=== PATIENT | female | born 1970 | race Hispanic/Latino ===

== ENCOUNTER 2017-03-14 23:37 | Emergency (ER) | payer OTHER ==
--- NOTE | 2017-03-15 01:03 | Cat Scan Report ---
FINAL REPORT EXAM: CT HEAD/BRAIN WO CON HISTORY: fall TECHNIQUE: Noncontrast serial axial images from skull base to vertex PRIORS: None. FINDINGS: There is no mass effect or midline shift. There are no abnormal intra or extra-axial fluid collections. Cortical sulci and lateral ventricles are within normal limits for size and configuration. Basilar cisterns are patent. No acute intracranial hemorrhage is identified. Visualized paranasal sinuses and mastoid air cells are well aerated. No acute osseous abnormality is identified. IMPRESSION: 1. No acute intracranial hemorrhage is identified.
--- NOTE | 2017-03-15 01:05 | Cat Scan Report ---
FINAL REPORT EXAM: CT CERVICAL SPINE WO CON HISTORY: fall TECHNIQUE: Noncontrast serial axial images through the cervical spine with coronal and sagittal reconstruction. PRIORS: None. FINDINGS: No gross abnormality is seen in the visualized portion of the brain. Mastoid air cells are well aerated. Prevertebral soft tissues appear within normal limits. Paraseptal emphysematous changes seen in the lung apices. No acute fracture or anterolisthesis is identified. Degenerative changes are noted at multiple levels. There is a subcentimeter lucent focus in the dens which may represent intraosseous cyst. IMPRESSION: 1. No acute fracture or anterolisthesis is identified. 2. Multilevel degenerative change is noted.
[2017-03-15] MEDS ORDERED: TYLENOL PO ONE (01:07)
--- NOTE | 2017-03-15 01:12 | Emergency Department Report ---
ED Syncope HPI - General Chief Complaint: Syncope Stated Complaint: SYNCOPAL EPISODE Time Seen by Provider: 03/15/17 00:39 Source: patient, family, EMS Exam Limitations: no limitations - History of Present Illness Initial Comments: There was a 6-year-old female brought by EMS medical. All syncope one episode lasted 1 minutes. Patient stated that she was outside in hot for a good. Time today. Patient stated that she was just asked to double up her blood pressure medicine. Patient stated that she is back to normal denied any jerking movements during this episode, never had a similar condition before. Timing/Prior Episodes: no prior history Context: standing Loss of Consciousness: unsure Current Symptoms: back to normal - Related Data Allergies/Adverse Reactions: Allergies codeine Allergy (Verified 03/14/17 23:52) Unknown Home Medications: Ambulatory Orders Cyclobenzaprine [Flexeril 10mg] 10 mg PO TID PRN #20 tablet 03/25/14 HYDROcodone/APAP 5-325 [[place] 5/325] 1 each PO Q6HR PRN #14 tablet 03/25/14 Ibuprofen [Motrin] 600 mg PO Q8H PRN #20 tablet 03/25/14 Lisinopril [Zestril TAB] 10 mg PO QDAY #30 tablet 03/15/17 ED Review of Systems ROS: Stated complaint: SYNCOPAL EPISODE Other details as noted in HPI Comment: All other systems reviewed and negative Constitutional: denies: chills, fever ENT: denies: throat pain Respiratory: denies: cough, shortness of breath Cardiovascular: denies: chest pain Gastrointestinal: denies: abdominal pain, nausea, vomiting Musculoskeletal: denies: back pain Neurological: headache. denies: weakness, numbness ED Past Medical Hx - Past Medical History Previous Medical History?: Yes Hx Hypertension: Yes Hx Psychiatric Treatment: Yes (etoh and drug abuse) Additional medical history: phebitis R leg - Surgical History Past Surgical History?: Yes Additional Surgical History: c section, L eye - Social History Smoking Status: Current Every Day Smoker Substance Use Type: Alcohol, Marijuana - Medications Home Medications: Home Medications Medication Instructions Recorded Confirmed Last Taken Type Cyclobenzaprine [Flexeril 10mg] 10 mg PO TID PRN #20 tablet 03/25/14 Unknown Rx HYDROcodone/APAP 5-325 [[place] 1 each PO Q6HR PRN #14 tablet 03/25/14 Unknown Rx 5/325] Ibuprofen [Motrin] 600 mg PO Q8H PRN #20 tablet 03/25/14 Unknown Rx Lisinopril [Zestril TAB] 10 mg PO QDAY #30 tablet 03/15/17 Unknown Rx ED Physical Exam - General Limitations: No Limitations General appearance: alert, in no apparent distress - Head Head exam: Present: atraumatic, normocephalic - Eye Eye exam: Present: normal appearance Pupils: Present: normal accommodation - ENT ENT exam: Present: normal exam, normal orophraynx, mucous membranes moist - Neck Neck exam: Present: normal inspection, full ROM. Absent: tenderness, lymphadenopathy - Respiratory Respiratory exam: Present: normal lung sounds bilaterally. Absent: wheezes, rales, rhonchi - Cardiovascular Cardiovascular Exam: Present: regular rate, normal rhythm, normal heart sounds - GI/Abdominal GI/Abdominal exam: Present: soft. Absent: tenderness, guarding, rebound - Back Exam Back exam: Present: normal inspection - Neurological Exam Neurological exam: Present: alert, oriented X3, CN II-XII intact, normal gait, reflexes normal. Absent: abnormal gait, motor sensory deficit - Psychiatric Psychiatric exam: Present: normal affect - Skin Skin exam: Present: warm, normal color ED Course Vital Signs 03/15/17 01:03 Temperature 97.7 F Pulse Rate 104 H Respiratory 14 Rate Blood Pressure 154/92 [Right] O2 Sat by Pulse 98 Oximetry - Reevaluation(s) Reevaluation #1: 03/15/17 02:05 Patient stated that she is feeling much better and she is ready to go home she will follow-up with her primary care physician. Critical care attestation.: If time is entered above; I have spent that time in minutes in the direct care of this critically ill patient, excluding procedure time. ED Disposition Clinical Impression: Syncopal episodes, Chest wall contusion Disposition: DC- TO HOME OR SELFCARE Is pt being admited?: No Condition: Stable Instructions: Syncope (ED)
[2017-03-15 02:14] VITALS: BP 154/91
--- NOTE | 2017-03-15 09:57 | XRay Report ---
XRAY RIGHT RIBS THREE VIEWS: 03/15/17 CLINICAL: Trauma to the right chest and right chest pain. FINDINGS: No rib fracture or rib lesion. The lungs are normally expanded. No pneumothorax. Normal heart and pulmonary vasculature. IMPRESSION: Negative chest. No rib fracture.
== END 2017-03-15 02:15 | disposition home or self-care (01) ==
LOC: ED 23:37
DX: S20.219A Contusion of unspecified front wall of thorax, initial encounter (principal); R55 Syncope and collapse; I10 Essential (primary) hypertension; F17.210 Nicotine dependence, cigarettes, uncomplicated; F12.10 Cannabis abuse, uncomplicated; Z88.6 Allergy status to analgesic agent; X58.XXXA Exposure to other specified factors, initial encounter; Y93.89 Activity, other specified; Y92.89 Other specified places as the place of occurrence of the external cause; Y99.8 Other external cause status
CPT/HCPCS: 70450; 72125; 93005; 93010; 99285

== ENCOUNTER 2017-10-17 04:30 | Inpatient (IN) | payer OTHER ==
[2017-10-17] MEDS ORDERED: ASPIRIN PO ONE (04:53)
[2017-10-17 05:46] LABS: BUN/Creatinine Ratio 33; Blood Urea Nitrogen 20 mg/dL (7-17); Calcium 9.2 mg/dL (8.4-10.2); Hemolysis Index 28
[2017-10-17 06:15] LABS: Hemoglobin 18.6 gm/dl (10.1-14.3); Mean Corpuscular HGB Conc 32 % (30-34); Mean Corpuscular Hemoglobin 30 pg (28-32); Mean Corpuscular Volume 91 fl (79-97); Red Blood Count 6.29 M/mm3 (3.65-5.03); Red Cell Distribution Width 13.6 % (13.2-15.2)
--- NOTE | 2017-10-17 06:20 | Emergency Department Report ---
ED Chest Pain HPI - General Chief Complaint: Chest Pain Stated Complaint: CP Time Seen by Provider: 10/17/17 06:11 Source: patient, EMS Mode of arrival: Stretcher Limitations: No Limitations - History of Present Illness Initial Comments: 47 yo C F presents to the ED via EMS from home with the complaint of a 3-4 day history of right sided CP with some associated SOB. The CP has been there since it began. She denies any fever, N/V, back pain, abd pain. She took a tylenol for her pain without much relief. She says that EMS came out 2 days ago for these symptoms and thought it could be anxiety so she took 1 xanax from a friend as well to try and treat herself without much relief. She is a tobacco and marijuana smoker. She denies any recent alcohol abuse. She says she is having a lot of anxiety and stress lately since her , she lost her insurance, and she is living with her sister. She has a remote pmhx of PE x 2 and is not on any blood thinners. No recent travel or sick contacts at home. Severity scale (0 -10): 10 - Related Data Previous Rx's Medication Instructions Recorded Last Taken Type Lisinopril [Zestril TAB] 10 mg PO QDAY #30 tablet 03/15/17 10/16/17 Rx Allergies Allergy/AdvReac Type Severity Reaction Status Date / Time codeine Allergy Unknown Verified 03/14/17 23:52 Heart Score - HEART Score History: Moderately suspicious EKG: Normal Age: 45-65 Risk factors: 1-2 risk factors Troponin: < normal limit HEART Score: 3 - Critical Actions Critical Actions: 0-3 pts:0.9-1.7%risk of adverse cardiac event.Candidate for discharge ED Review of Systems ROS: Stated complaint: CP Other details as noted in HPI Comment: All other systems reviewed and negative Constitutional: denies: chills, fever Eyes: denies: eye pain, eye discharge, vision change ENT: denies: ear pain, throat pain Respiratory: shortness of breath. denies: cough Cardiovascular: chest pain. denies: palpitations Gastrointestinal: denies: abdominal pain, nausea, diarrhea Genitourinary: denies: urgency, dysuria, discharge Musculoskeletal: denies: back pain, joint swelling, arthralgia Skin: denies: rash, lesions Neurological: denies: headache, weakness, paresthesias ED Past Medical Hx - Past Medical History Hx Hypertension: Yes Hx Psychiatric Treatment: Yes (etoh and drug abuse) Additional medical history: phebitis R leg - Surgical History Additional Surgical History: c section, L eye - Social History Smoking Status: Current Every Day Smoker Substance Use Type: Marijuana - Medications Home Medications: Home Medications Medication Instructions Recorded Confirmed Last Taken Type Lisinopril [Zestril TAB] 10 mg PO QDAY #30 tablet 03/15/17 10/17/17 10/16/17 Rx ED Physical Exam - General Limitations: No Limitations - Other Other exam information: GENERAL: The patient is well-developed well-nourished. HENT: Normocephalic. Atraumatic. Patient has moist mucous membranes. EYES: Extraocular motions are intact. Pupils equal reactive to light bilaterally. NECK: Supple. trachea is midline. CHEST/LUNGS: Clear to auscultation. There is no respiratory distress noted. HEART/CARDIOVASCULAR: Regular. There is no tachycardia. There is no murmur. ABDOMEN: Abdomen is soft, nontender. Patient has normal bowel sounds. There is no abdominal distention. SKIN: Skin is warm and dry. NEURO: The patient is awake, alert, and oriented. The patient is cooperative. The patient has no focal neurologic deficits. The patient has normal speech. MUSCULOSKELETAL: There is no tenderness or deformity. There is no limitation range of motion. There is no evidence of acute injury. ED Course Vital Signs 10/17/17 10/17/17 10/17/17 04:40 04:46 04:49 Temperature 97.9 F Pulse Rate 85 81 88 Respiratory 32 H 19 20 Rate Blood Pressure 164/87 164/87 Blood Pressure [Left] O2 Sat by Pulse 100 Oximetry 10/17/17 10/17/17 10/17/17 05:00 05:15 05:16 Temperature Pulse Rate 88 87 66 Respiratory 23 15 Rate Blood Pressure 164/87 144/80 Blood Pressure [Left] O2 Sat by Pulse 97 Oximetry 10/17/17 10/17/17 10/17/17 05:18 05:23 05:30 Temperature 97.9 F Pulse Rate 87 73 Respiratory 15 15 18 Rate Blood Pressure 144/80 Blood Pressure 144/80 [Left] O2 Sat by Pulse 97 97 99 Oximetry 10/17/17 10/17/1718 05:46 06:11 06:16 Temperature Pulse Rate 73 91 H 88 Respiratory 19 14 19 Rate Blood Pressure 148/63 164/87 144/80 Blood Pressure [Left] O2 Sat by Pulse 99 99 100 Oximetry 10/17/17 10/17/17 10/17/17 06:30 06:46 07:00 Temperature Pulse Rate 83 81 87 Respiratory 13 29 H 22 Rate Blood Pressure 135/75 135/75 135/75 Blood Pressure [Left] O2 Sat by Pulse 97 98 100 Oximetry 10/17/17 10/17/17 07:30 08:19 Temperature 98.2 F Pulse Rate 88 Respiratory 16 Rate Blood Pressure 154/98 Blood Pressure [Left] O2 Sat by Pulse 98 Oximetry ARNULFO score - Arnulfo Score Age > 65: (0) No Aspirin use within the Past 7 Days: (0) No 3 or more CAD Risk Factors: (0) No 2 or more Angina events in past 24 hrs: (1) Yes Known CAD with more than 50% Stenosis: (0) No Elevated Cardiac Markers: (0) No ST Deviation Greater than 0.5mm: (0) No ARNULFO Score: 1 ED Medical Decision Making - Lab Data Result diagrams: 10/17/17 05:05 10/17/17 05:05 - EKG Data -: EKG Interpreted by Me EKG shows normal: sinus rhythm, axis, intervals, QRS complexes, ST-T waves Rate: normal - EKG Data When compared to previous EKG there are: previous EKG unavailable Interpretation: normal EKG - Radiology Data Radiology results: report reviewed, image reviewed interpreted by me: Chest x-ray does not show any acute process. There are no pleural effusions, obvious pneumonia and there is no pneumothorax. LUNG SCAN, VENTILATION AND PERFUSION: History: Elevated D. dimer, chest pain. Technique: 5mci of Tc99m MAA was infused for the perfusion images. 15mci XE 133 gas was inhaled for the ventilatory images. Correlation is made with a chest x-ray dated 10/17/17. Findings: Inhalation of Xenon gas demonstrates a normal distribution of the activity throughout both lungs. The wash out phases demonstrate mild retention of the radiotracer bilaterally consistent with obstructive pulmonary disease. After injection of Technetium 99m macroaggregated albumin gamma camera imaging of the lungs in multiple projections demonstrates Multiple bilateral small and large perfusion defects concerning for bilateral pulmonary emboli. The largest perfusion defect is in the left lower lobe. IMPRESSION: Intermediate to high probability of pulmonary embolus. These findings were discussed with Dr. Jones in the emergency department at 0956 hours. Transcribed By: TTR Dictated By: PATRICE KENT JR, MD Electronically Authenticated By: PATRICE KENT JR, MD Signed Date/Time: 10/17/17 0956 - Medical Decision Making Patient presents with a couple days of some chest pain and intermittent shortness of breath. First her troponins negative thus far. The patient had a slightly elevated and equivocal d-dimer and a VQ scan was done as we were unable to get sufficient IV access to get a CT angiography. VQ scan came back showing intermediate to high probability for pulmonary embolus. Started on heparin patient will be admitted to the hospital for further evaluation and treatment and was accepted for admission by the hospitalist, Dr. Oh. - Differential Diagnosis SC, PE, CHF, Pneumonia Critical Care Time: No Critical care attestation.: If time is entered above; I have spent that time in minutes in the direct care of this critically ill patient, excluding procedure time. ED Disposition Clinical Impression: Pulmonary embolism Qualifiers: Pulmonary embolism type: other Chronicity: acute Acute cor pulmonale presence: without acute cor pulmonale Qualified Code(s): I26.99 - Other pulmonary embolism without acute cor pulmonale Chest pain Qualifiers: Chest pain type: unspecified Qualified Code(s): R07.9 - Chest pain, unspecified Hypertension Qualifiers: Hypertension type: essential hypertension Qualified Code(s): I10 - Essential ( primary) hypertension Disposition: OP ADMIT IP TO THIS HOSP Is pt being admited?: Yes Condition: Fair Time of Disposition: 12:09
[2017-10-17 06:24] LABS: Platelet Count 235 K/mm3 (140-440)
[2017-10-17 06:25] LABS: Hematocrit 57.4 % (30.3-42.9)
--- NOTE | 2017-10-17 06:37 | XRay Report ---
FINAL REPORT EXAM: XR CHEST 1V AP HISTORY: CP TECHNIQUE: AP portable view(s) of the chest obtained. PRIORS: None. FINDINGS: Mild patient rotation. No mediastinal shift. Cardiac silhouette is not enlarged. No pneumothorax, effusion, or focal pulmonary opacity identified. No acute skeletal findings. IMPRESSION: No acute pulmonary finding identified.
[2017-10-17 07:03] LABS: Eosinophils % (Manual) 0 % (0.0-4.3); Total Cells Counted 100
[2017-10-17 07:04] LABS: Basophils % (Manual) 0 % (0.0-1.8); RBC Morphology Normal
[2017-10-17] MEDS ORDERED: NORCO 5/325 PO ONE (07:18)
--- NOTE | 2017-10-17 10:04 | Nuclear Medicine Report ---
LUNG SCAN, VENTILATION AND PERFUSION: History: Elevated D. dimer, chest pain. Technique: 5mci of Tc99m MAA was infused for the perfusion images. 15mci XE 133 gas was inhaled for the ventilatory images. Correlation is made with a chest x-ray dated 10/17/17. Findings: Inhalation of Xenon gas demonstrates a normal distribution of the activity throughout both lungs. The wash out phases demonstrate mild retention of the radiotracer bilaterally consistent with obstructive pulmonary disease. After injection of Technetium 99m macroaggregated albumin gamma camera imaging of the lungs in multiple projections demonstrates Multiple bilateral small and large perfusion defects concerning for bilateral pulmonary emboli. The largest perfusion defect is in the left lower lobe. IMPRESSION: Intermediate to high probability of pulmonary embolus. These findings were discussed with Dr. Jones in the emergency department at 0956 hours.
[2017-10-17] MEDS ORDERED: KINEVAC IV ONE ×2 (10:22→10:26)
[2017-10-17] MEDS ORDERED: HEPARIN 10,000 UNITS/10 ML IV ONE (10:23)
[2017-10-17 10:54] LABS: INR 0.95 (0.87-1.13)
[2017-10-17 10:55] LABS: Partial Thromboplastin Time 25.2 Sec. (24.2-36.6)
[2017-10-17] MEDS ORDERED: SODIUM CHLORIDE FLUSH SYRINGE 10 ML IV PRN (10:58)
[2017-10-17] MEDS ORDERED: TYLENOL PO PRN (10:58)
[2017-10-17] MEDS ORDERED: REGLAN IV PRN (10:58)
[2017-10-17] MEDS ORDERED: NACL 0.9% 1000 ML 1,000 ML IV SCH ×2 (11:00→16:00)
[2017-10-17] MEDS: HEPARIN/ 0.45% NACL-25,000 UNIT/500 ML 25,000 UNIT/500 ML BAG IV SCH (12:05)
[2017-10-17] MEDS ORDERED: ZESTRIL ONE (13:21)
[2017-10-17] MEDS: ZESTRIL PO SCH (13:23)
--- NOTE | 2017-10-17 13:45 | History and Physical Report ---
History of Present Illness Date of examination: 10/17/17 Date of admission: 10/17/17 10:58 History of present illness: 47 yo C F presents to the ED via EMS from home with the complaint of a 3-4 day history of right sided CP with some associated SOB. The CP has been there since it began. She denies any fever, N/V, back pain, abd pain. She took a tylenol for her pain without much relief. She says that EMS came out 2 days ago for these symptoms and thought it could be anxiety so she took 1 xanax from a friend as well to try and treat herself without much relief. She is a tobacco and marijuana smoker. She denies any recent alcohol abuse. She says she is having a lot of anxiety and stress lately since her , she lost her insurance, and she is living with her sister. She has a remote pmhx of PE x 2 and is not on any blood thinners. No recent travel or sick contacts at home. Past medical History: h/o Rt LE DVT, HTN Past surgical History: s/p Social History: Lives with family, + tobacco smoking, denies drinking. Positive for marijuana abuse. Family History: Significant for HTN Review of System: Constitutional: no fever, no chills, no weight loss Ears, eyes, nose, mouth and throat: no nasal congestion, no nasal discharge, no sinus pressure, no vision change, no red eye. Neck: No neck pain or rigidity. Cardiovascular: No chest pain, no orthopnea, no palpitations, no leg swelling Respiratory: No shortness of breath, no cough, no congestion, no wheezing Gastrointestinal: no abdominal pain, no nausea, no vomiting Genitourinary : no dysuria, no hematuria Musculoskeletal: no joint swelling or muscle ache Integumentary: no rash, no pruritis Neurological: no parathesias, no numbness, no tingling Endocrine: no cold or heat intolerance, no polyuria or polydipsia Hematologic/Lymphatic: no easy bruising, no easy bleeding, no gland swelling Allergic/Immunologic: no urticaria, no angioedema. Medications and Allergies Allergies Allergy/AdvReac Type Severity Reaction Status Date / Time codeine Allergy Unknown Verified 03/14/17 23:52 Home Medications Medication Instructions Recorded Confirmed Last Taken Type Lisinopril [Zestril TAB] 10 mg PO QDAY #30 tablet 03/15/17 10/17/17 10/16/17 Rx Active Meds: Active Medications Acetaminophen (Tylenol) 650 mg PO Q4H PRN PRN Reason: Pain MILD(1-3)/Fever >100.5/GALLEGOS Acetaminophen/Hydrocodone Bitart ([place] 5/325) 2 each PO Q6H PRN PRN Reason: Pain, Moderate (4-6) Docusate Sodium (Colace) 100 mg PO BID [facility] Heparin Sodium/Sodium Chloride (Heparin/ 0.45% Nacl-25,000 Unit/500 Ml) 25,000 unit in 500 mls @ 15 mls/hr IV TITR SHY; Protocol Last Admin: 10/17/17 12:05 Dose: 750 units/hr, 15 mls/hr Sodium Chloride (Nacl 0.9% 1000 Ml) 1,000 mls @ 75 mls/hr IV DIRECT SHY Lisinopril (Zestril) 10 mg PO QDAY [facility] Last Admin: 10/17/17 13:23 Dose: 10 mg Metoclopramide HCl (Reglan) 10 mg IV Q6H PRN PRN Reason: Nausea And Vomiting Sodium Chloride (Sodium Chloride Flush Syringe 10 Ml) 10 ml IV BID SHY Sodium Chloride (Sodium Chloride Flush Syringe 10 Ml) 10 ml IV PRN PRN PRN Reason: LINE FLUSH Exam - Physical Exam Narrative exam: GENERAL: well-developed and well-nourished lying on bed appeared to be in no discomfort. HEENT: Normocephalic. Atraumatic. No conjunctival congestion or icterus. Patient has moist mucous membranes. NECK: Supple. Trachea midline. CHEST/LUNGS: Clear to auscultated bilaterally, breathing nonlabored. No wheezes crackles or rhonchi. HEART/CARDIOVASCULAR: Regular in rate and rhythm. S1 and S2 positive. ABDOMEN: Abdomen is soft, nontender. Patient has normal bowel sounds. SKIN: There is no rash. Warm and dry. NEURO: No focal motor deficit. Follows command. MUSCULOSKELETAL: No joint effusion or tenderness. EXTRIMITY: No edema, no cyanosis or clubbing. PSYCH: Cooperative. VQ scan of lung: Intermediate to high probability of pulmonary embolus. - Constitutional Vitals: Temp Pulse Resp BP Pulse Ox 98.2 F 88 16 154/98 98 10/17/17 08:19 10/17/17 07:30 10/17/17 07:30 10/17/17 07:30 10/17/17 07:30 Results - Labs CBC & Chem 7: 10/17/17 05:05 10/17/17 05:05 Labs: Abnormal lab results 10/17/17 10/17/17 10/17/17 Range/Units 05:05 05:05 07:04 RBC 6.29 H (3.65-5.03) M/mm3 Hgb 18.6 H (10.1-14.3) gm/dl Hct 57.4 H* (30.3-42.9) % Seg Neuts % (Manual) 83.0 H (40.0-70.0) % D-Dimer 260.85 H (0-234) ng/mlDDU Sodium 135 L (137-145) mmol/L Carbon Dioxide 20 L (22-30) mmol/L BUN 20 H (7-17) mg/dL Creatinine 0.6 L (0.7-1.2) mg/dL Assessment and Plan Possible PE with history of prior DVT - We'll admit the patient to telemetry - Will provide scheduled nebulizers and breathing treatment - Place on heparin drip - Provide supplemental oxygen to keep oxygen saturation above 92% - will consult pulmonary, may need to obtain CTA of the chest to confirm the diagnosis - We will resume home medications, monitor BP - Provide DVT prophylaxis with Lovenox Tobacco abuse - Counseled for cessation, place a nicotine patch. HTN, resume lisinopril home dose Polycythemia, suspected - Hb >18, could be reactive vs due to dehydration - repeat CBC in the am, if remain elevated may need hematology consult DVt Px - heparin drip
--- NOTE | 2017-10-17 15:19 | Consultation ---
History of Present Illness Consult date: 10/17/17 Requesting physician: CASSIE TIAN Reason for consult: chest pain, pulmonary embolism History of present illness: PULMONARY/CCM CONSULT NOTE (Full dictation # [id number]) Please see dictated notes for full details Medications and Allergies Allergies Allergy/AdvReac Type Severity Reaction Status Date / Time codeine Allergy Unknown Verified 03/14/17 23:52 Home Medications Medication Instructions Recorded Confirmed Last Taken Type Lisinopril [Zestril TAB] 10 mg PO QDAY #30 tablet 03/15/17 10/17/17 10/16/17 Rx Active Meds: Active Medications Acetaminophen (Tylenol) 650 mg PO Q4H PRN PRN Reason: Pain MILD(1-3)/Fever >100.5/GALLEGOS Acetaminophen/Hydrocodone Bitart ([place] 5/325) 2 each PO Q6H PRN PRN Reason: Pain, Moderate (4-6) Docusate Sodium (Colace) 100 mg PO BID SHY Heparin Sodium/Sodium Chloride (Heparin/ 0.45% Nacl-25,000 Unit/500 Ml) 25,000 unit in 500 mls @ 15 mls/hr IV TITR SHY; Protocol Last Admin: 10/17/17 12:05 Dose: 750 units/hr, 15 mls/hr Sodium Chloride (Nacl 0.9% 1000 Ml) 1,000 mls @ 75 mls/hr IV DIRECT SHY Sodium Chloride (Nacl 0.9% 1000 Ml) 1,000 mls @ 75 mls/hr IV DIRECT SHY Lisinopril (Zestril) 10 mg PO QDAY SHY Last Admin: 10/17/17 13:23 Dose: 10 mg Metoclopramide HCl (Reglan) 10 mg IV Q6H PRN PRN Reason: Nausea And Vomiting Nicotine (Habitrol) 21 mg TD QDAY SHY Sodium Chloride (Sodium Chloride Flush Syringe 10 Ml) 10 ml IV BID SHY Sodium Chloride (Sodium Chloride Flush Syringe 10 Ml) 10 ml IV PRN PRN PRN Reason: LINE FLUSH Physical Examination Vital signs: Vital Signs Pulse Resp 85 32 H 10/17/17 04:40 10/17/17 04:40 Results - Laboratory Findings CBC and BMP: 10/17/17 05:05 10/17/17 05:05 PT/INR, D-dimer PT 13.1 Sec. (12.2-14.9) 10/17/17 07:04 INR 0.95 (0.87-1.13) 10/17/17 07:04 D-Dimer 260.85 ng/mlDDU (0-234) H 10/17/17 07:04 Abnormal lab findings: Abnormal Labs 10/17/17 10/17/17 10/17/17 05:05 05:05 07:04 RBC 6.29 H Hgb 18.6 H Hct 57.4 H* Seg Neuts % (Manual) 83.0 H D-Dimer 260.85 H Sodium 135 L Carbon Dioxide 20 L BUN 20 H Creatinine 0.6 L
[2017-10-17] MEDS: NORCO 5/325 PO PRN ×2 (16:16→22:20)
--- NOTE | 2017-10-17 18:31 | Cat Scan Report ---
FINAL REPORT PROCEDURE: CT ANGIO CHEST TECHNIQUE: Computerized tomographic angiography of the chest was performed after the IV injection of iodinated nonionic contrast including image processing. The image data was postprocessed using 2-dimensional multiplanar reformatted (MPR) and 3-dimensional (MIP and/or volume rendered) techniques. HISTORY: chest pain COMPARISON: No prior studies are available for comparison. FINDINGS: Heart and pericardium: No pericardial effusion or thickening. Thoracic aorta: No aneurysm or dissection of the aorta is noted. There is a possible short segment dissection of the origin of the left subclavian artery, over a length of 17 millimeters, versus streak artifact from dense contrast in the left brachiocephalic vein. Pulmonary vasculature: Normal. Lymph nodes: No enlarged thoracic lymph nodes. Lungs: Patchy airspace opacities in the left lower lobe, concerning for early pneumonia. Pleural space: No effusion, thickening, or pneumothorax. Musculoskeletal structures: No significant abnormality. Upper abdominal structures: No significant abnormality. IMPRESSION: No evidence of pulmonary emboli. Left lower lobe mild patchy airspace opacities, concerning for early pneumonia. 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
[2017-10-17] MEDS: SODIUM CHLORIDE FLUSH SYRINGE 10 ML IV SCH (22:19)
[2017-10-17] MEDS: COLACE PO SCH (22:20)
--- NOTE | 2017-10-18 01:22 | Consultation ---
PULMONARY CRITICAL CARE CONSULTATION NOTE CONSULTING PHYSICIAN: Dr. Marina Oh. REASON FOR CONSULTATION: Possible pulmonary embolus. CHIEF COMPLAINT AND HISTORY OF PRESENT ILLNESS: The patient is a 47-year-old female with past medical history significant only for a diagnosis of high blood pressure. She tells me, came into the Emergency Room complaining of about 2 to 3 days history of right-sided chest pain, some shortness of breath intermittently pleuritic in nature. She says she called 911 initially and was told nothing major was going on. She denied fevers or chills. She denied cough or expectoration. She denied any sick contacts. She does have a 10 plus packs year tobacco smoking history. On the day of presentation, analgesics did not provide any relief, so she came into the Emergency Room. She stated that she has been having a lot of anxiety and stress issues since her and initially had blamed her symptoms of that. She has had a history of pulmonary emboli in the past. She was never told that she needed to be on continuous blood thinners, but has had more than one episode in the past. In the emergency room, she was evaluated. The V/Q scan was done, it was read as intermediate to high probability, and we are asked to assist with management. When I stopped by to see her, she was resting in bed, still with pain, no nausea, no vomiting, no new-onset leg pain or swelling either unilaterally or bilaterally or any suggestion of deep venous thrombosis. Again, she did have some dyspnea on exertion, but denied significant palpitations. She is not on control medication. This really is as much of the history of presentation as I have. PAST MEDICAL HISTORY: Again, according to her significant for prior venous thromboembolic event x at least 2, history of hypertension, history of alcohol and drug abuse and history of tobacco use disorder. She has had phlebitis of the right leg in the past. PAST SURGICAL HISTORY: She has had a and she has had surgery to her left eye. MEDICATIONS: She was on at the time I stopped by to see were reviewed, pertinent medications included Longs 5/325 two tablets p.o. q.6 hours p.r.n. moderate pain, docusate sodium 100 mg p.o. b.i.d. She was on IV insulin drip going per protocol, lisinopril 10 mg p.o. daily, nicotine 21 mg per day patch. ALLERGIES: CODEINE, nature of this allergy is unknown. DIET: Thin lady. Denies significant weight loss or gain in preceding few weeks to months. FAMILY AND SOCIAL HISTORY: Lives in the community. She has a 10 plus packs year tobacco smoking history. Denies current alcohol or illicit drug use or abuse, but has had a history of such. Denied any history of coronary artery disease. Family history is otherwise noncontributory. REVIEW OF SYSTEMS: No loss of consciousness. No new onset seizures. No new onset focal weakness. No gross hematochezia or melena. No gross hematuria, no hematemesis, no hemoptysis, no polydipsia, no polyuria. No new onset back pain, joint pain or swelling. No arthralgias. No new rash on her body. No headache and no weakness. No new onset seizures. Complete 14-system review of systems obtained. Pertinent positives and/or negatives as in body of history above, otherwise they are noncontributory. PHYSICAL EXAMINATION: VITAL SIGNS: At presentation in the emergency room, she was afebrile, temperature 97.9 degrees Fahrenheit, pulse of 85, respiratory rate of 20, blood pressure 164/87, and oxygen sats 100%, inspired oxygen concentration was not recorded. At presentation initially her respiratory rate was in the 30s. GENERAL: She is a thin looking middle-aged female, looks her stated age, normocephalic and atraumatic, talking to me in full sentences, but in mild respiratory distress. HEAD, EYES, EARS, NOSE AND THROAT: She is anicteric. No conjunctival erythema. Oropharynx is a Mallampati #2 oropharynx. Oropharynx is moist. No gross jugular venous distention, no palpable thyromegaly, no palpable lymph nodes in the supraclavicular or submandibular lymph node chains. LUNGS: Auscultation of both lung lassiter is really unremarkable. Lungs are clear bilaterally, slightly diminished bilateral breath sounds with no wheezing. HEART: Heart sounds 1 and 2 are heard. They were regular in rate and rhythm at the time of my evaluation. No rubs, no murmurs. ABDOMEN: Soft, flat. Bowel sounds are positive, nontender. No palpable hepatosplenomegaly. EXTREMITIES: Without overt digital clubbing, no cyanosis, no pedal edema. Dorsalis pedis pulses are palpable bilaterally. NEUROLOGIC: Pupils are equal and round, about 3-4 mm, reactive to light. Extraocular muscle movements are intact. She moves all 4 extremities spontaneously. SKIN: Of normal turgor, no rash, no cellulitis. LABORATORY DATA: From my review are as follows: White cell count 9000, hemoglobin 18.6, hematocrit 57.4, and platelet count 235. No band forms. INR 0.95. D-dimer elevated at 260.85. Serum sodium 135, potassium 4.0, chloride 101, bicarbonate 20, BUN 20, creatinine 0.6, and glucose of 82. Troponin within normal limits x 2 sets. No microbiology studies. A chest x-ray has been reviewed. I have also reviewed the radiologist's interpretation. Essentially, chest x-ray shows some evidence of hyperinflation with flattening of the right hemidiaphragm and both right and left hemidiaphragms at the same level, no gross pneumothorax, no gross bony fracture. The film is rotated to the left. Cardiovascular silhouette is within normal limits. V/Q scan was done and as mentioned above, was read as an intermediate to high probability V/Q scan concerning for bilateral pulmonary emboli. ASSESSMENT AND PLAN: 1. Acute chest pain. 2. History of venous thromboembolic events in the past. 3. Tobacco use disorder. 4. Hypertension. 5. Anxiety disorder. 6. History of alcohol abuse. 7. Mild metabolic acidosis. PLAN: I have discussed IV contrast with her. She denies any history of IV contrast. She thinks she has received it before. She denies a history of seafood or shellfish allergy and is certainly a candidate for a CT angiogram, which will be a more definitive in terms of determining venosus thromboembolic event/pulmonary emboli. The plan therefore will be to order a stat CT angiogram of the chest and to continue IV heparin therapy for now. I will start her on normal saline and run about a liter ____ for some element of renal protection. I will also get lower extremity Dopplers bilaterally. I will add GI prophylaxis, especially with her on full anticoagulation. We will continue the nicotine patch. Tobacco cessation has been counseled. Acute coronary syndrome workup may still be of benefit in her. Flu and pneumonia vaccination will be addressed per protocol. Thank you very much for the consult. She will get p.r.n. analgesia and p.r.n. antianxiety medications. We will follow along. We will make further recommendations as picture progresses/becomes clearer. JOB# [id number] ANNETTE/CHI
[2017-10-18] MEDS: NORCO 5/325 PO PRN ×3 (05:22→22:50)
[2017-10-18 06:24] LABS: Basophils # (Auto) 0.1 K/mm3 (0.0-0.1); Basophils % (Auto) 1.1 % (0.0-1.8); Eosinophils # (Auto) 0.3 K/mm3 (0.0-0.4); Hematocrit 37.1 % (30.3-42.9); Hemoglobin 11.9 gm/dl (10.1-14.3); Lymphocytes # (Auto) 2.5 K/mm3 (1.2-5.4); Lymphocytes % (Auto) 33.6 % (13.4-35.0); Mean Corpuscular HGB Conc 32 % (30-34); Mean Corpuscular Hemoglobin 30 pg (28-32); Mean Corpuscular Volume 92 fl (79-97); Monocytes # (Auto) 0.8 K/mm3 (0.0-0.8); Monocytes % (Auto) 10.5 % (0.0-7.3); Platelet Count 413 K/mm3 (140-440); Red Blood Count 4.02 M/mm3 (3.65-5.03); Red Cell Distribution Width 13.3 % (13.2-15.2)
[2017-10-18 06:29] LABS: INR 0.93 (0.87-1.13)
[2017-10-18 06:30] LABS: Heparin anti-factor XA 0.17 U.I./ml (0.3-0.7)
[2017-10-18 06:52] LABS: BUN/Creatinine Ratio 23; Blood Urea Nitrogen 14 mg/dL (7-17); Calcium 8.7 mg/dL (8.4-10.2); Hemolysis Index 8
[2017-10-18] MEDS: HEPARIN/ 0.45% NACL-25,000 UNIT/500 ML 25,000 UNIT/500 ML BAG IV SCH (07:16)
--- NOTE | 2017-10-18 09:40 | Progress Note ---
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 Duenas No intervention needed at this point, advised to follow with him upon discharge For further evaluation if needed --Possible early left pneumonia ; on CTA, empiric antibiotics Z-Luis --Hypertension; moderate control, continue current antihypertensives When necessary medications --History of polycythemia; hematology following Follow hematology oncology upon discharge for further evaluation --Ongoing tobacco use; smoking cessation counseling done advised nicotine patch as needed --DVT prophylaxis; Lovenox --DC planning. Case management Ambulate as tolerated Possible discharge home tomorrow if stable History Interval history: Patient seen and examined medical records reviewed No new complaints Vital signs reviewed Alert awake oriented 3 not in acute distress Patient is on heparin drip for possible PE However CT angiogram of the chest is negative for PE Lower extremity venous Doppler negative for DVT Patient has incidental finding of proximal subclavian dissection on CTA Discussed with vascular surgeon Dr. Holley, insignificant finding Do not need any treatment, advised to follow with him in the office upon discharge For further evaluation if needed Hospitalist Physical - Constitutional Vitals: Temp Pulse Resp BP Pulse Ox 97.6 F 66 8 L 122/61 100 10/18/17 03:26 10/18/17 03:26 10/18/17 03:26 10/18/17 03:26 10/18/17 03:26 General appearance: Present: no acute distress, well-nourished - EENT Eyes: Present: PERRL, EOM intact - Neck Neck: Present: supple, normal ROM - Respiratory Respiratory effort: normal Respiratory: bilateral: diminished, negative: rales, rhonchi, wheezing - Cardiovascular Rhythm: regular Heart Sounds: Present: S1 & S2 - Extremities Extremities: no ischemia, No edema Peripheral Pulses: within normal limits - Abdominal General gastrointestinal: soft, non-tender, non-distended, normal bowel sounds - Integumentary Integumentary: Present: clear, warm - Psychiatric Psychiatric: appropriate mood/affect, cooperative - Neurologic Neurologic: CNII-XII intact, moves all extremities Results - Labs CBC & Chem 7: 10/18/17 05:28 10/18/17 05:28 Labs: Laboratory Last Values WBC 7.6 K/mm3 (4.5-11.0) 10/18/17 05:28 RBC 4.02 M/mm3 (3.65-5.03) 10/18/17 05:28 Hgb 11.9 gm/dl (10.1-14.3) D 10/18/17 05:28 Hct 37.1 % (30.3-42.9) D 10/18/17 05:28 MCV 92 fl (79-97) 10/18/17 05:28 MCH 30 pg (28-32) 10/18/17 05:28 MCHC 32 % (30-34) 10/18/17 05:28 RDW 13.3 % (13.2-15.2) 10/18/17 05:28 Plt Count 413 K/mm3 (140-440) 10/18/17 05:28 Lymph % (Auto) 33.6 % (13.4-35.0) 10/18/17 05:28 [place] % (Auto) 10.5 % (0.0-7.3) H 10/18/17 05:28 Eos % (Auto) 4.0 % (0.0-4.3) 10/18/17 05:28 Baso % (Auto) 1.1 % (0.0-1.8) 10/18/17 05:28 Lymph # 2.5 K/mm3 (1.2-5.4) 10/18/17 05:28 [place] # 0.8 K/mm3 (0.0-0.8) 10/18/17 05:28 Eos # 0.3 K/mm3 (0.0-0.4) 10/18/17 05:28 Baso # 0.1 K/mm3 (0.0-0.1) 10/18/17 05:28 Add Manual Diff Complete 10/17/17 05:05 Total Counted 100 10/17/17 05:05 Seg Neutrophils % 50.8 % (40.0-70.0) 10/18/17 05:28 Seg Neuts % (Manual) 83.0 % (40.0-70.0) H 10/17/17 05:05 Band Neutrophils % 0 % 10/17/17 05:05 Lymphocytes % (Manual) 14.0 % (13.4-35.0) 10/17/17 05:05 Reactive Lymphs % (Man) 0 % 10/17/17 05:05 Monocytes % (Manual) 3.0 % (0.0-7.3) 10/17/17 05:05 Eosinophils % (Manual) 0 % (0.0-4.3) 10/17/17 05:05 Basophils % (Manual) 0 % (0.0-1.8) 10/17/17 05:05 Metamyelocytes % 0 % 10/17/17 05:05 Myelocytes % 0 % 10/17/17 05:05 Promyelocytes % 0 % 10/17/17 05:05 Blast Cells % 0 % 10/17/17 05:05 Nucleated RBC % Not Reportable 10/17/17 05:05 Seg Neutrophils # 3.8 K/mm3 (1.8-7.7) 10/18/17 05:28 Seg Neutrophils # Man 7.5 K/mm3 (1.8-7.7) 10/17/17 05:05 Band Neutrophils # 0.0 K/mm3 10/17/17 05:05 Lymphocytes # (Manual) 1.3 K/mm3 (1.2-5.4) 10/17/17 05:05 Abs React Lymphs (Man) 0.0 K/mm3 10/17/17 05:05 Monocytes # (Manual) 0.3 K/mm3 (0.0-0.8) 10/17/17 05:05 Eosinophils # (Manual) 0.0 K/mm3 (0.0-0.4) 10/17/17 05:05 Basophils # (Manual) 0.0 K/mm3 (0.0-0.1) 10/17/17 05:05 Metamyelocytes # 0.0 K/mm3 10/17/17 05:05 Myelocytes # 0.0 K/mm3 10/17/17 05:05 Promyelocytes # 0.0 K/mm3 10/17/17 05:05 Blast Cells # 0.0 K/mm3 10/17/17 05:05 WBC Morphology Not Reportable 10/17/17 05:05 Hypersegmented Neuts Not Reportable 10/17/17 05:05 Hyposegmented Neuts Not Reportable 10/17/17 05:05 Hypogranular Neuts Not Reportable 10/17/17 05:05 Smudge Cells Not Reportable 10/17/17 05:05 Toxic Granulation Not Reportable 10/17/17 05:05 Toxic Vacuolation Not Reportable 10/17/17 05:05 Dohle Bodies Not Reportable 10/17/17 05:05 Pelger-Huet Anomaly Not Reportable 10/17/17 05:05 Bubba Rods Not Reportable 10/17/17 05:05 Platelet Estimate Appears normal 10/17/17 05:05 Clumped Platelets Not Reportable 10/17/17 05:05 Plt Clumps, EDTA Not Reportable 10/17/17 05:05 Large Platelets Not Reportable 10/17/17 05:05 Giant Platelets Not Reportable 10/17/17 05:05 Platelet Satelliting Not Reportable 10/17/17 05:05 Plt Morphology Comment Not Reportable 10/17/17 05:05 RBC Morphology Normal 10/17/17 05:05 Dimorphic RBCs Not Reportable 10/17/17 05:05 Polychromasia Not Reportable 10/17/17 05:05 Hypochromasia Not Reportable 10/17/17 05:05 Poikilocytosis Not Reportable 10/17/17 05:05 Anisocytosis Not Reportable 10/17/17 05:05 Microcytosis Not Reportable 10/17/17 05:05 Macrocytosis Not Reportable 10/17/17 05:05 Spherocytes Not Reportable 10/17/17 05:05 Pappenheimer Bodies Not Reportable 10/17/17 05:05 Sickle Cells Not Reportable 10/17/17 05:05 Target Cells Not Reportable 10/17/17 05:05 Tear Drop Cells Not Reportable 10/17/17 05:05 Ovalocytes Not Reportable 10/17/17 05:05 Helmet Cells Not Reportable 10/17/17 05:05 [place] Bodies Not Reportable 10/17/17 05:05 Buford Rings Not Reportable 10/17/17 05:05 Rebeca Cells Not Reportable 10/17/17 05:05 Bite Cells Not Reportable 10/17/17 05:05 Crenated Cell Not Reportable 10/17/17 05:05 Elliptocytes Not Reportable 10/17/17 05:05 Acanthocytes (Spur) Not Reportable 10/17/17 05:05 Rouleaux Not Reportable 10/17/17 05:05 Hemoglobin C Crystals Not Reportable 10/17/17 05:05 Schistocytes Not Reportable 10/17/17 05:05 Malaria parasites Not Reportable 10/17/17 05:05 David Bodies Not Reportable 10/17/17 05:05 Hem Pathologist Commnt No 10/17/17 05:05 PT 12.9 Sec. (12.2-14.9) 10/18/17 05:28 INR 0.93 (0.87-1.13) 10/18/17 05:28 APTT 25.2 Sec. (24.2-36.6) 10/17/17 07:04 D-Dimer 260.85 ng/mlDDU (0-234) H 10/17/17 07:04 Heparin Anti-Xa Level 0.17 U.I./ml (0.3-0.7) L 10/18/17 05:28 Sodium 138 mmol/L (137-145) 10/18/17 05:28 Potassium 3.6 mmol/L (3.6-5.0) 10/18/17 05:28 Chloride 101.3 mmol/L (98-107) 10/18/17 05:28 Carbon Dioxide 23 mmol/L (22-30) 10/18/17 05:28 Anion Gap 17 mmol/L 10/18/17 05:28 BUN 14 mg/dL (7-17) 10/18/17 05:28 Creatinine 0.6 mg/dL (0.7-1.2) L 10/18/17 05:28 Estimated GFR > 60 ml/min 10/18/17 05:28 BUN/Creatinine Ratio 23 % 10/18/17 05:28 Glucose 97 mg/dL (65-100) 10/18/17 05:28 Calcium 8.7 mg/dL (8.4-10.2) 10/18/17 05:28 Troponin T < 0.010 ng/mL (0.00-0.029) 10/17/17 11:55
[2017-10-18] MEDS: COLACE PO SCH ×2 (11:09→23:29)
[2017-10-18] MEDS: HABITROL TD SCH (11:09)
[2017-10-18] MEDS: ZESTRIL PO SCH (11:10)
--- NOTE | 2017-10-18 14:44 | Progress Note ---
Assessment and Plan - Patient Problems (1) Chest pain Current Visit: Yes Status: Acute Qualifiers: Chest pain type: unspecified Qualified Code(s): R07.9 - Chest pain, unspecified (2) Community acquired bacterial pneumonia Current Visit: Yes Status: Acute Subjective Date of service: 10/18/17 Principal diagnosis: Chest pain, shortness of breath, V/Q intermediate probability PE Objective - Exam Narrative Exam: GENERAL: chronically ill looking, not in any distress, lying on bed appeared HEENT: Normocephalic. Atraumatic. No conjunctival congestion or icterus. Patient has moist mucous membranes. NECK: Supple. Trachea midline. CHEST/LUNGS: Clear to auscultated bilaterally, breathing nonlabored. No wheezes crackles or rhonchi. HEART/CARDIOVASCULAR: Regular in rate and rhythm. S1 and S2 positive. ABDOMEN: Abdomen is soft, non-tender. Patient has normal bowel sounds. SKIN: There is no rash. Warm and dry. NEURO: No focal motor deficit. Follows command. MUSCULOSKELETAL: No joint effusion or tenderness. EXTRIMITY: No edema, no cyanosis or clubbing. PSYCH: Cooperative. VQ scan of lung: Intermediate to high probability of pulmonary embolus. CTA negative for PE, early left lower lobe pneumonia Vital Signs - 12hr 10/18/17 10/18/17 10/18/17 03:26 08:53 11:10 Temperature 97.6 F 97.6 F Pulse Rate 66 67 67 Respiratory 8 L 16 Rate Blood Pressure 122/61 145/74 145/74 O2 Sat by Pulse 100 98 Oximetry 10/18/17 11:45 Temperature Pulse Rate Respiratory 18 Rate Blood Pressure O2 Sat by Pulse Oximetry CBC and BMP: 10/18/17 05:28 10/18/17 05:28 ABG, PT/INR, D-dimer: PT/INR, D-dimer PT 12.9 Sec. (12.2-14.9) 10/18/17 05:28 INR 0.93 (0.87-1.13) 10/18/17 05:28 D-Dimer 260.85 ng/mlDDU (0-234) H 10/17/17 07:04 Abnormal lab findings: Abnormal Labs 10/17/17 10/17/17 10/17/17 05:05 05:05 07:04 RBC 6.29 H Hgb 18.6 H Hct 57.4 H* [place] % (Auto) Seg Neuts % (Manual) 83.0 H D-Dimer 260.85 H Heparin Anti-Xa Level Sodium 135 L Carbon Dioxide 20 L BUN 20 H Creatinine 0.6 L 10/17/17 10/18/17 10/18/17 19:55 05:28 05:28 RBC Hgb Hct [place] % (Auto) 10.5 H Seg Neuts % (Manual) D-Dimer Heparin Anti-Xa Level 0.11 L 0.17 L Sodium Carbon Dioxide BUN Creatinine 10/18/17 10/18/17 05:28 13:17 RBC Hgb Hct [place] % (Auto) Seg Neuts % (Manual) D-Dimer Heparin Anti-Xa Level 0.22 L Sodium Carbon Dioxide BUN Creatinine 0.6 L
[2017-10-18] MEDS ORDERED: MILK OF MAGNESIA PO ONE (15:16)
[2017-10-18] MEDS ORDERED: ZITHROMAX PO ONE (20:00)
[2017-10-18] MEDS ORDERED: LOVENOX SUB-Q SCH (22:00)
[2017-10-18] MEDS: SODIUM CHLORIDE FLUSH SYRINGE 10 ML IV SCH ×2 (22:50→23:29)
[2017-10-18] MEDS ORDERED: ZITHROMAX ONE (23:20)
[2017-10-19] MEDS: NORCO 5/325 PO PRN (07:38)
[2017-10-19] MEDS: HABITROL TD SCH (09:29)
[2017-10-19 09:32] VITALS: BP 163/94
[2017-10-19] MEDS: ZESTRIL PO SCH (09:32)
[2017-10-19] MEDS: COLACE PO SCH (09:32)
[2017-10-19 10:26] LABS: Hematocrit 37.3 % (30.3-42.9); Hemoglobin 12.5 gm/dl (10.1-14.3)
--- NOTE | 2017-10-19 11:05 | Vascular Lab Report ---
LOWER EXTREMITY VENOUS DUPLEX: REASON FOR EXAM: Pulmonary embolism. COMMENTS ON THE RIGHT: All veins visualized are freely compressible without evidence of internal echogenicity. Flow is spontaneous and phasic throughout. COMMENTS ON THE LEFT: All veins visualized are freely compressible without evidence of internal echogenicity. Flow is spontaneous and phasic throughout. IMPRESSION: No evidence of acute or chronic deep venous thrombosis in either lower extremity.
--- NOTE | 2017-10-19 12:30 | Discharge Summary ---
Providers - Providers Date of Admission: 10/17/17 10:58 Date of discharge: 10/19/17 Attending physician: ELISHA CAO 10/17/17 13:50 Consult to Physician [CONS] Routine Comment: Consulting Provider: JOSE KYLE Physician Instructions: Reason For Exam: possible PE Primary care physician: PEDRO PABLO SPEAR Hospitalization Condition: Fair Disposition: DC-01 TO HOME OR SELFCARE Time spent for discharge: 31 min Core Measure Documentation - Palliative Care Palliative Care/ Comfort Measures: Not Applicable - Core Measures Any of the following diagnoses?: none Exam - Constitutional Vitals: Temp Pulse Resp BP Pulse Ox 97.3 F L 79 16 163/94 97 10/19/17 09:07 10/19/17 09:32 10/19/17 09:07 10/19/17 09:32 10/19/17 09:07 General appearance: Present: no acute distress, well-nourished - EENT Eyes: Present: PERRL, EOM intact - Neck Neck: Present: supple, normal ROM - Respiratory Respiratory effort: normal Respiratory: bilateral: diminished, negative: rales, rhonchi, wheezing - Cardiovascular Rhythm: regular Heart Sounds: Present: S1 & S2 - Extremities Extremities: no ischemia, No edema - Abdominal General gastrointestinal: Present: soft, non-tender, non-distended, normal bowel sounds - Integumentary Integumentary: Present: clear, warm - Musculoskeletal Musculoskeletal: strength equal bilaterally - Psychiatric Psychiatric: appropriate mood/affect, cooperative - Neurologic Neurologic: CNII-XII intact, moves all extremities Plan Activity: no restrictions Diet: regular Special Instructions: smoking cessation Additional Instructions: Smoking cessation counseling done Follow up with: PEDRO PABLO SPEAR MD [Primary Care Provider] - 3-5 Days TIGRE BEDOLLA MD [Staff Physician] - 7 Days Prescriptions: Amoxicillin [Trimox CAP] 500 mg PO Q8H #30 capsule Lisinopril [Zestril TAB] 10 mg PO QDAY #30 tablet Nicotine [Habitrol] 21 mg TD QDAY #30 patch
[2017-10-19] MEDS ORDERED: ZITHROMAX PO SCH ×2 (20:00→21:00)
== END 2017-10-19 19:59 | disposition home or self-care (01) | DRG 313 ==
LOC: ED 04:30 → 4A 10:58
PROVIDERS: ADMIT Internal Medicine; ATTEND Internal Medicine
DX: R07.9 Chest pain, unspecified (principal); J18.9 Pneumonia, unspecified organism; E87.2 Acidosis; I10 Essential (primary) hypertension; F17.210 Nicotine dependence, cigarettes, uncomplicated; D75.1 Secondary polycythemia; F12.929 Cannabis use, unspecified with intoxication, unspecified; F41.9 Anxiety disorder, unspecified; Z79.899 Other long term (current) drug therapy; Z88.6 Allergy status to analgesic agent; Z86.718 Personal history of other venous thrombosis and embolism; Z82.49 Family history of ischemic heart disease and other diseases of the circulatory system; Z86.711 Personal history of pulmonary embolism; Z71.6 Tobacco abuse counseling
CPT/HCPCS: 36415; 71045; 71275; 78582; 80048; 84484; 85007; 85014; 85018; 85025; 85049; 85379; 85520; 85610; 85730; 93005; 93010; 93970; 96374; 99406; A9540; A9558; J1644; J1650; J2765; J2805; J7030; Q9967